=== PATIENT | male | born 1940 | race Two or more races ===

== ENCOUNTER 2022-11-11 10:51 | Day surgery (SDC) | payer MEDICARE ==
[2022-11-05 11:18] LABS: BASOPHILS % (AUTO) 0.4 % (0-1); EOSINOPHILS # (AUTO) 0.1 X10'3 (0-0.9); EOSINOPHILS % (AUTO) 1.7 % (0-6); LYMPHOCYTES # (AUTO) 1.5 X10'3 (1.1-4.8); LYMPHOCYTES % (AUTO) 23.8 % (21-51); MEAN CORPUSCULAR HEMOGLOBIN 29.6 PG (27.0-31.0); MEAN CORPUSCULAR HGB CONC 33.3 g/dL (33.0-36.5); MEAN PLATELET VOLUME 8.3 FL (7.4-10.4); MONOCYTES # (AUTO) 0.8 X10'3 (0-0.9); MONOCYTES % (AUTO) 12.5 % (2-12); NEUTROPHILS # (AUTO) 3.8 X10'3 (1.8-7.7); NEUTROPHILS % (AUTO) 61.6 % (42-75); PRE OP HEMATOCRIT 41.6 % (42.0-52.0); PRE OP HEMOGLOBIN 13.9 g/dL (14.0-17.9); PRE OP PLATELET COUNT 200 X10'3 (140-440); RED BLOOD COUNT 4.68 X10'6 (4.70-6.10); RED CELL DISTRIBUTION WIDTH 14.5 % (11.5-14.5)
[2022-11-05 11:40] LABS: ALBUMIN 3.6 G/DL (3.4-5.0); ALBUMIN/GLOBULIN RATIO 0.9 (1.1-1.5); ALKALINE PHOSPHATASE 80 IU/L (46-116); BLOOD UREA NITROGEN 19 MG/DL (7-18); BUN/CREATININE RATIO 20.7 (10.0-20.0); CALCIUM 8.7 MG/DL (8.5-10.1); CHLORIDE 102 MMOL/L (99-107); CREATININE 0.92 MG/DL (0.60-1.10); PRE OP ALT 21 U/L (30-65); PRE OP ANION GAP 9 (8-16); PRE OP AST 18 U/L (10-37); PRE OP BILIRUB, TOTAL 0.3 MG/DL (0.0-1.0); PRE OP GLUCOSE 89 MG/DL (70-104); PRE OP SODIUM 139 MMOL/L (135-145); TOTAL CARBON DIOXIDE 28.3 MMOL/L (24-32); TOTAL PROTEIN 7.5 G/DL (6.4-8.2); eGFR 79 ML/MIN
[2022-11-05 11:41] LABS: PRE OP POTASSIUM 4.3 MMOL/L (3.4-5.1)
[~2022-11-11] VITALS: Ht 165.1 cm; Wt 89.9 kg
[2022-11-11] VITALS (11 sets, daily range): BP systolic 161–198; BP diastolic 72–105
[~2022-11-11 10:51] MED LIST: ATOR40TA72 PO; CHOL500050 PO; CLOP75TA34 PO; CRAN500T4 PO; DOCUMENT DATE & TIME OF BETA-BLOCKER PO ONE; FLO0.4C PO; NETA2.5D EACHEYE; OSC500T PO; PROP20TA6 PO; cefazolin 2gm/D5W 100mL 100 ML IV ONE; famotidine 20mg tablet PO ONE; ringers solution, lacted 1,000 ML IV SCH
[2022-11-11] MEDS ORDERED: LIDOcaine 1% 30ml preserv. free vial ONE (15:43)
[2022-11-11] MEDS ORDERED: BUPIVAcaine/PF 2.5 mg/ml (0.25%) 30ml vial ONE (15:43)
[2022-11-11] MEDS ORDERED: sevoflurane 250ml liquid IH ONE (15:46)
[2022-11-11] MEDS ORDERED: propofol inj 20 ML IV ONE (15:47)
[2022-11-11] MEDS ORDERED: midazolam 1 mg/ML 2ml injection ONE (15:47)
[2022-11-11] MEDS ORDERED: fentaNYL/PF 50MCG/1 ML 2ML syringe ONE (15:47)
[2022-11-11] MEDS ORDERED: ringers solution, lacted 1,000 ML IV SCH (15:50)
[2022-11-11] MEDS ORDERED: meperidine/PF 25mg/ml syringe IV PRN ×3 (15:50)
[2022-11-11] MEDS ORDERED: morphine 2 MG/ML inj. syringe IV PRN (15:50)
[2022-11-11] MEDS ORDERED: morphine 4 MG/ML inj SYRINge IV PRN (15:50)
[2022-11-11] MEDS ORDERED: proCHLORperazine 10 MG/2 ml inj IV PRN (15:50)
[2022-11-11] MEDS ORDERED: ondansetron/PF 4mg/2ml inj IV PRN (15:50)
[2022-11-11] MEDS ORDERED: BUPIVAcaine/PF 2.5 mg/ml (0.25%) 30ml vial IJ ONE (16:14)
[2022-11-11] MEDS ORDERED: LIDOcaine 1% 30ml preserv. free vial IJ ONE (16:18)
[2022-11-11] MEDS ORDERED: ePHEDrine 50MG/ML INJ. ONE (16:34)
--- NOTE | 2022-11-11 16:43 | NUR ---
Received from OR via [facility] TO RECOVERY ROOM 7, accompanied by Anesthesiologist DR JIMÉNEZ and report given by Anesthesiolgist. PT PRESENTS WITH PIV 20G RIGHT AC, ABD DRESSING BANDAID CDI, SPO2 100% 6L MASK, BP HIGH 190/[address] JIMÉNEZ WAIT 10 MIN AND GIVE HYDRALAZINE. Addendum: 11/11/22 at 1657 by Lizeth Christianson RN, RN Amended: Links added.
[2022-11-11] MEDS: hydrALAZINE 20mg/ml inj. IV PRN ×2 (17:11→17:24)
[2022-11-11] MEDS ORDERED: HYDROcodone/acetaminophen 5mg/325mg tablet PO PRN (17:20)
--- NOTE | 2022-11-11 17:53 | NUR ---
I HAVE REVIEWED D/C INSTRUCTIONS WITH PATIENT AND THEY HAVE VERBALIZED UNDERSTANDING OF INSTRUCTIONS. PT WHEELED OUT IN WHEELCHAIR, PATIENT D/C HOME WITH ALL BELONGINGS AND FAMILY GAVE TRANSPORT Addendum: 11/11/22 at 1825 by Lizeth Christianson RN, RN Amended: Links added.
== END 2022-11-11 17:53 | disposition home or self-care (01) ==
LOC: PAS 10:51
PROVIDERS: ATTEND Surgery
DX: K42.0 Umbilical hernia with obstruction, without gangrene (principal); N40.0 Benign prostatic hyperplasia without lower urinary tract symptoms; I10 Essential (primary) hypertension; E78.5 Hyperlipidemia, unspecified; M19.90 Unspecified osteoarthritis, unspecified site; Z98.890 Other specified postprocedural states; Z79.01 Long term (current) use of anticoagulants; Z79.899 Other long term (current) drug therapy; Z86.73 Personal history of transient ischemic attack (TIA), and cerebral infarction without residual deficits; Z98.41 Cataract extraction status, right eye; Z98.42 Cataract extraction status, left eye; Z82.3 Family history of stroke
CPT/HCPCS: 36415; 49592; 80053; 82948; 85025; 93005; C1781; J0360; J0690; J2250; J2270; J2704; J3010; J3490; J7030; J7120; Z7506; Z7512; A4618; A7000